=== PATIENT | male | born 1960 | race Hispanic/Latino ===

== ENCOUNTER 2018-01-11 22:05 | Emergency (ER) | payer SELFPAY ==
[~2018-01-11 22:05] MED LIST: Iopamidol 370 76% 100 ML VIAL ONE; Sodium Chloride 0.9% 1,000 ML BAG ONE; Sodium Chloride 0.9% 100 ML BAG ONE
[2018-01-11] MEDS ORDERED: Ondansetron ODT 4 MG TAB ONE (22:25)
[2018-01-11] MEDS ORDERED: Famotidine In NaCl 20 mg/50 ml Premix Bag ONE (22:25)
[2018-01-11] MEDS ORDERED: Ketorolac Tromethamine 30 MG/ML VIAL ONE (22:25)
[2018-01-11 22:27] LABS: #Basophils 0.1 thou/uL (0.0-0.2); #Eosinphils 0.2 thou/uL (0.0-0.7); #Lymphocytes 2.1 thou/uL (1.20-3.40); #Monocytes 0.7 thou/uL (0.11-0.59); #Neutrophils 6.8 thou/uL (1.40-6.50); %Basophils 1.2 % (0.0-1.0); %Eosinophils 1.6 % (0.0-10.0); %Lymphocytes 20.9 % (21.0-51.0); %Monocytes 7.4 % (0.0-10.0); %Neutrophils 68.9 % (42.0-75.0); Hemoglobin 14.3 g/dL (14.0-18.0); Mean Corpuscular HGB CONC 33.7 g/dL (32.0-36.0); Mean Corpuscular Hemoglobin 30.6 pg (27.0-31.0); Mean Corpuscular Volume 90.7 fL (78.0-98.0); Mean Platelet Volume 6.7 fL (7.4-10.4); Platelet Count 365 thou/uL (130-400); Red Blood Cell (RBC) Count 4.68 mill/uL (4.70-6.10); White Blood Cell (WBC) Count 9.9 thou/uL (4.8-10.8)
[2018-01-11 22:45] LABS: CKMB 4.2 ng/mL (0-6.6); Troponin I Less than 0.010 ng/mL (< 0.028)
[2018-01-11 22:47] LABS: Anion Gap 16 mmol/L (10-20); BUN (Urea Nitrogen) 16 mg/dL (8.4-25.7); Calc. Creatinine Clearance 0 mL/min (70-130); Calcium 9.2 mg/dL (7.8-10.44); Carbon Dioxide 24 mmol/L (22-29); Chloride 104 mmol/L (98-107); Estimated GFR-MDRD 85; Glucose 119 mg/dL (70-105); Potassium 4.3 mmol/L (3.5-5.1); Sodium 140 mmol/L (136-145)
--- NOTE | 2018-01-11 22:48 | RAD ---
PORTABLE UPRIGHT FRONTAL CHEST RADIOGRAPH: Date: 01-11-18 Comparison: 08-23-08 History: Upper abdominal pain, epigastric pain. FINDINGS: No pneumothorax, pleural fluid, focal consolidation or alveolar edema. Heart and mediastinal contours are unremarkable. IMPRESSION: No acute findings. POS: [facility]
[2018-01-11] MEDS ORDERED: Fentanyl 100 MCG/2 ML VIAL ONE (22:52)
[2018-01-11] MEDS ORDERED: Cefepime 1 GM VIAL ONE (23:41)
[2018-01-11] MEDS ORDERED: HYDROmorphone 0.5 MG/0.5 ML SYRINGE ONE (23:48)
--- NOTE | 2018-01-11 23:49 | CT ---
CT OF ABDOMEN AND PELVIS: Date: 01-11-18 Comparison: None. History: Upper abdominal pain, epigastric pain. Technique: Serial axial CT imaging is obtained at 5 mm intervals from the lung bases through the pubi c symphysis intravenous and oral contrast. Coronal reformatted imaging obtained. FINDINGS: The imaged lung bases appear unremarkable. There is small volume free intraperitoneal air anterior to the liver within the right upper quadrant, evidence of bowel perforation. The liver appears grossly unremarkable. There is nonspecific mild wall thickening of the gallbladder. The spleen, pancreas, adr enal glands and kidneys appear unremarkable. Extraluminal oral contrast media is seen adjacent to the gastric antrum, the inferior aspect of the l iver, and extending into the right pericolic gutter. There is moderate free fluid in the pelvis and t he right paracolic gutter. There is no evidence for bowel obstruction. There is atherosclerotic calcification of the infrarenal abdominal aorta. No lymphadenopathy in the abdomen or pelvis. Review of osseous structures demonstrates no worrisome lytic or blastic bone lesion. IMPRESSION: Free intraperitoneal air in the right upper quadrant, evidence of bowel perforation. There is free fl uid in the right upper quadrant and right pericolic gutter extending into the pelvis with extralumina l oral contrast media within the right abdomen. This suggests that the location of the patient's deven l perforation is in the region of the lateral aspect of the distal gastric antrum or proximal duodenu m on the basis of perforated peptic ulcer disease. Surgical consultation is advised. Results called to Dr. Zarate at 11:30 p.m. 01-11-18. Code CR POS: [facility]
== END 2018-01-11 23:58 | disposition short-term general hospital (02) ==
LOC: MADERS 22:05
DX: K63.1 Perforation of intestine (nontraumatic) (principal); K25.5 Chronic or unspecified gastric ulcer with perforation; F17.210 Nicotine dependence, cigarettes, uncomplicated
CPT/HCPCS: 71045; 74177; 80048; 82150; 82553; 83605; 84484; 85025; 93005; 94760; 96361; 96365; 96375; J0692; J1170; J1885; J3010; J7050; Q0162

== ENCOUNTER 2018-12-20 08:10 | Emergency (ER) | payer SELFPAY ==
[2018-12-20 09:37] LABS: ALT (SGPT) 29 U/L (8-55); AST (SGOT) 23 U/L (5-34); Albumin 3.4 g/dL (3.5-5.0); Alkaline Phosphatase 89 U/L (40-150); Anion Gap 15 mmol/L (10-20); BUN (Urea Nitrogen) 9 mg/dL (8.4-25.7); Bilirubin, Total 0.7 mg/dL (0.2-1.2); Calc. Creatinine Clearance 0 mL/min (70-130); Calcium 9.2 mg/dL (7.8-10.44); Carbon Dioxide 27 mmol/L (22-29); Chloride 99 mmol/L (98-107); Estimated GFR-MDRD Greater than 90; Glucose 109 mg/dL (70-105); Potassium 3.8 mmol/L (3.5-5.1); Protein, Total 7.4 g/dL (6.0-8.3); Sodium 137 mmol/L (136-145)
[2018-12-20] MEDS ORDERED: Sodium Chloride 0.9% 1,000 ML ONE (09:40)
[2018-12-20 09:42] LABS: Hemoglobin 13.1 g/dL (14.0-18.0); Mean Corpuscular HGB CONC 32.1 g/dL (32.0-36.0); Mean Corpuscular Hemoglobin 29.3 pg (27.0-31.0); Mean Corpuscular Volume 91.2 fL (78.0-98.0); Platelet Count 415 thou/uL (130-400); RBC Distribution Width 12.6 % (11.5-14.5); Red Blood Cell (RBC) Count 4.45 mill/uL (4.70-6.10); White Blood Cell (WBC) Count 17.5 thou/uL (4.8-10.8)
[2018-12-20 09:43] LABS: Mean Platelet Volume 6.3 fL (7.4-10.4)
[2018-12-20 09:44] LABS: Manual Diff?? YES
[2018-12-20 09:54] LABS: Anisocytosis SLIGHT = 6-15 cells (100X) (0-5/hpf); Band 5 % (5-11); Lymphocytes 7 % (21-51); MDiff Complete? YES; Monocytes 4 % (0-10); Neutrophil 84 % (42-75); Platelet Morphology Comment Appears Adequate
--- NOTE | 2018-12-20 10:49 | CT ---
CT PULMONARY ANGIOGRAM WITH IV CONTRAST AND 3-D POSTPROCESSING: HISTORY:Chest pain FINDINGS: There is good contrast opacification of the pulmonary arterial vasculature without filling defects to suggest pulmonary embolism. The thoracic aorta is well opacified without aneurysm or dissection. No pleural or pericardial effusions are seen. There is a 1 cm right-sided superior mediastinal lymph node. No pneumothoraces or lung nodules are noted. Patchy areas of consolidation is seen in the right upper lobe and both lung bases. There are degenerative changes in the spine. IMPRESSION: 1. No CT evidence of pulmonary embolism. 2. Pneumonia.
[2018-12-20] MEDS ORDERED: Sodium Chloride 0.9% 100 ML ONE (10:53)
[2018-12-20] MEDS ORDERED: cefTRIAXone\\ROCEPHIN 1 GM VIAL ONE (10:53)
--- NOTE | 2018-12-20 11:05 | RAD ---
CHEST TWO VIEWS: HISTORY: Pain. COMPARISON: 01/11/2018 FINDINGS: Atherosclerosis of the aortic knob. Normal cardiac silhouette. The pulmonary vessels and hilum are normal. The costophrenic angles are clear. There are diffuse interstitial and alveolar opacities th roughout the right lung. Multilobar pneumonia is suspected. There does appear to be a nodule projec ting over the right lower lobe, measuring 1.4 cm. The second mass-like opacity appears to project ov er the right upper lobe, measuring 5 cm. There is no pneumothorax. There does appear to be a third mass-like opacity in the right perihilar region, measuring 5.3 cm. IMPRESSION: Interstitial and alveolar infiltrates with mass-like opacities in the right lung. Better interrogati on with chest CT is recommended. CODE T CODE LN POS: [facility]
[2018-12-20] MEDS ORDERED: Iopamidol 370 76% 125 ML VIAL FS ONE (14:14)
[2018-12-21 13:41] LABS: #Basophils 0.2 thou/uL (0.0-0.2); #Eosinphils 0.1 thou/uL (0.0-0.7); #Lymphocytes 1.5 thou/uL (1.20-3.40); #Monocytes 1.5 thou/uL (0.11-0.59); #Neutrophils 14.1 thou/uL (1.40-6.50); %Basophils 1.4 % (0.0-1.0); %Eosinophils 0.7 % (0.0-10.0); %Lymphocytes 8.5 % (21.0-51.0); %Monocytes 8.6 % (0.0-10.0); %Neutrophils 80.8 % (42.0-75.0)
== END 2018-12-20 11:35 | disposition short-term general hospital (02) ==
LOC: MADERS 08:10
DX: J15.9 Unspecified bacterial pneumonia (principal); F17.210 Nicotine dependence, cigarettes, uncomplicated
CPT/HCPCS: 71046; 71275; 80053; 83605; 83880; 84484; 85025; 85379; 87040; 93005; J0696; J3490; J7050; J7620; Q9967